=== PATIENT | female | born 1990 | race Caucasian/White ===

== ENCOUNTER 2019-12-31 12:17 | Outpatient (CLI) | payer OTHER, SELFPAY ==
[2019-12-31 12:40] LABS: Basophils Absolute Auto 0.1 K/mm3 (0.0-0.1); Basophils Percent Auto 1.1 % (0.2-1.2); Eosinophils Absolute Auto 0.1 K/mm3 (0-0.3); Hematocrit 38.3 % (37.0-47.0); Hemoglobin 12.3 g/dL (12.0-15.0); Immature Granulocyte Absolute 0.02 K/mm3 (0.00-0.031); Immature Granulocyte Percent A 0.3 % (0-0.5); Lymphocytes Absolute Auto 1.99 K/mm3 (0.9-3.2); Lymphocytes Percent Auto 31.7 % (18.3-44.2); Mean Corpuscular HGB Conc 32.1 g/dl (32-36); Mean Corpuscular Hemoglobin 28.3 pg (26-34); Mean Corpuscular Volume 88.2 fl (80-100); Mean Platelet Volume 8.2 fl (7.4-10.4); Monocytes Absolute Auto 0.4 K/mm3 (0.1-0.6); Monocytes Percent Auto 5.6 % (2.6-8.5); Neutrophils Absolute Auto 3.8 K/mm3 (1.3-6.7); Neutrophils Percent Auto 60.3 % (45.5-73.1); Platelet Count Result 312 k/mm3 (150-375); Red Blood Count 4.34 M/mm3 (4.2-5.4); Red Cell Distribution Width 12.8 % (11.5-14.5); White Blood Count 6.3 K/mm3 (4.5-10.0)
[2019-12-31 12:51] LABS: Alanine Aminotransferase 18 U/L (4-35); Albumin Level 4.6 g/dL (3.5-5.1); Alkaline Phosphatase 55 U/L (38-126); Aspartate Amino Transferase 29 U/L (14-36); Bilirubin,Total 0.6 mg/dL (0.2-1.3); Blood Urea Nitrogen 14 mg/dL (7-17); Calcium 9.4 mg/dL (8.4-10.2); Carbon Dioxide 26 mmol/L (22-30); Chloride 102 mmol/L (98-107); Cholesterol 191 mg/dL (0-200); Estimated Glomerular Filt Rate > 60; Glucose 84 mg/dL (65-105); HDL Direct 91 mg/dL; Potassium 4.2 mmol/L (3.4-5.0); Sodium 139 mmol/L (137-145); Triglycerides 61 mg/dL (<150)
[2019-12-31 13:06] LABS: LDL Cholesterol Direct 98 mg/dL
[2019-12-31 13:23] LABS: Free T4 Free Thyroxine 0.81 ng/mL (0.78-2.19)
[2019-12-31 13:25] LABS: Thyroid Stimulating Hormone 0.503 uIU/mL (0.465-4.680)
== END 2019-12-31 12:18 | disposition home or self-care (01) ==
PROVIDERS: PCP Family Medicine; Visit Provider Family Medicine
DX: Z13.1 Encounter for screening for diabetes mellitus (principal); Z13.0 Encounter for screening for diseases of the blood and blood-forming organs and certain disorders involving the immune mechanism; Z13.220 Encounter for screening for lipoid disorders; Z13.29 Encounter for screening for other suspected endocrine disorder
CPT/HCPCS: 36415; 80053; 80061; 84439; 84443; 85025

== ENCOUNTER 2020-07-08 16:24 | Outpatient (CLI) | payer OTHER, SELFPAY ==
[2020-07-08 17:44] LABS: Basophils Absolute Auto 0.1 K/mm3 (0.0-0.1); Basophils Percent Auto 0.5 % (0.2-1.2); Eosinophils Absolute Auto 0.1 K/mm3 (0-0.3); Hematocrit 35.9 % (37.0-47.0); Hemoglobin 12.3 g/dL (12.0-15.0); Immature Granulocyte Absolute 0.17 K/mm3 (0.00-0.031); Immature Granulocyte Percent A 1.6 % (0-0.5); Lymphocytes Absolute Auto 2.34 K/mm3 (0.9-3.2); Lymphocytes Percent Auto 22.2 % (18.3-44.2); Mean Corpuscular HGB Conc 34.3 g/dl (32-36); Mean Corpuscular Hemoglobin 29.6 pg (26-34); Mean Corpuscular Volume 86.3 fl (80-100); Mean Platelet Volume 8.3 fl (7.4-10.4); Monocytes Absolute Auto 0.9 K/mm3 (0.1-0.6); Monocytes Percent Auto 8.2 % (2.6-8.5); Neutrophils Percent Auto 66.5 % (45.5-73.1); Platelet Count Result 277 k/mm3 (150-375); Red Blood Count 4.16 M/mm3 (4.2-5.4); Red Cell Distribution Width 11.7 % (11.5-14.5); White Blood Count 10.6 K/mm3 (4.5-10.0)
[2020-07-08 18:33] LABS: HIV 1/2 Ab P24 Ag Result Negative (Negative)
[2020-07-08 18:36] LABS: Vitamin D 25 Hydroxy 59.5 ng/mL
[2020-07-08 19:05] LABS: Hepatitis B Surface Anti Res Negative
[2020-07-09 09:36] LABS: Rapid Plasma Reagin Non-Reactive (NonReactive)
== END 2020-07-08 16:25 | disposition home or self-care (01) ==
PROVIDERS: PCP Family Medicine; Visit Provider Obstetrics & Gynecology
DX: Z34.80 Encounter for supervision of other normal pregnancy, unspecified trimester (principal); Z3A.00 Weeks of gestation of pregnancy not specified
CPT/HCPCS: 36415; 82306; 85025; 86592; 86703; 86706; 86762; 86850; 86900; 86901; G0432

== ENCOUNTER 2021-02-11 05:30 | Inpatient (IN) | payer OTHER, SELFPAY ==
[2021-02-11] VITALS (171 sets, daily range): BP systolic 110–146; BP diastolic 59–108; PULSE 57–124; TEMP 36.4–37.1; O2SAT 95–100
--- NOTE | 2021-02-11 05:49 | LDADM ---
This patient, Mary Lou Huerta, was admitted to Labor/Delivery/Recovery 104 on 02/11/21 at 05:30. Plans for labor, pain management and were discussed with patient. Patient/family oriented to hospital policies and general routines including ID bracelet, bed and alarms, visiting hours, pain management, procedures, bathroom and other care routines, personal items, smoking policy, room service/diet and guest tray routines, security routines, and visiting hours. Patient/Family are encouraged to report perceived risks to care and to ask questions if they do not understand what they are told or what they should do. See OBIX for further documentation.
[2021-02-11 06:12] LABS: Basophils Absolute Auto 0.1 K/mm3 (0.0-0.1); Basophils Percent Auto 0.5 % (0.2-1.2); Eosinophils Absolute Auto 0.1 K/mm3 (0-0.3); Eosinophils Percent Auto 1.2 % (0-4.4); Hematocrit 35.2 % (37.0-47.0); Hemoglobin 11.7 g/dL (12.0-15.0); Immature Granulocyte Absolute 0.07 K/mm3 (0.00-0.031); Immature Granulocyte Percent A 0.7 % (0-0.5); Lymphocytes Absolute Auto 2.26 K/mm3 (0.9-3.2); Lymphocytes Percent Auto 22.2 % (18.3-44.2); Mean Corpuscular HGB Conc 33.2 g/dl (32-36); Mean Corpuscular Hemoglobin 29.1 pg (26-34); Mean Corpuscular Volume 87.6 fl (80-100); Mean Platelet Volume 8.8 fl (7.4-10.4); Monocytes Percent Auto 9.7 % (2.6-8.5); Neutrophils Absolute Auto 6.7 K/mm3 (1.3-6.7); Neutrophils Percent Auto 65.7 % (45.5-73.1); Platelet Count Result 209 k/mm3 (150-375); Red Blood Count 4.02 M/mm3 (4.2-5.4); Red Cell Distribution Width 13.2 % (11.5-14.5); White Blood Count 10.2 K/mm3 (4.5-10.0)
[2021-02-11] MEDS: LACTATED RINGERS 1,000 ML 125 ML IV CONT ×3 (06:18→13:21)
[2021-02-11] MEDS: OXYTOCIN 30 UNITS/NS 500 ML 30 UNITS/500 ML BAG 6 UNITS IV CONT (06:19)
--- NOTE | 2021-02-11 07:22 | P.PNAN_ITS ---
Anes - Eval Pre Procedure Procedure: labor epidural Date/Time: 02/11/21 07:22 Preop Diagnosis: labor pain Pre Op Diagnosis: IOL Patient Data Age: 30 Gender: F Height: Weight: Last Vital Signs Temp 37.1 C 02/11/21 06:13 Pulse 92 02/11/21 07:15 BP 140/99 H 02/11/21 07:15 Allergies Allergy/AdvReac Type Severity Reaction Status Date / Time No Known Drug Allergies Allergy Unknown Verified 10/14/18 01:46 Home Medications Medication Instructions Recorded Confirmed Type PNV cmb#95-ferrous fumarate-FA 1 tablet PO DAILY 01/20/21 01/20/21 History [] calcium carbonate [Tums] 200 mg PO TID 01/20/21 01/20/21 History docusate sodium [Colace] 50 mg PO DAILY 01/20/21 01/20/21 History famotidine [Pepcid] 20 mg PO DAILY 01/20/21 01/20/21 History Laboratory Tests 02/11/21 02/11/21 02/11/21 05:58 05:58 05:58 WBC 10.2 K/mm3 H K/mm3 (4.5-10.0) RBC 4.02 M/mm3 L M/mm3 (4.2-5.4) Hgb 11.7 g/dL L g/dL (12.0-15.0) Hct 35.2 % L % (37.0-47.0) MCV 87.6 fl fl (80-100) MCH 29.1 pg pg (26-34) MCHC 33.2 g/dl g/dl (32-36) RDW 13.2 % % (11.5-14.5) Plt Count 209 k/mm3 k/mm3 (150-375) MPV 8.8 fl fl (7.4-10.4) Immature Gran % (Auto) 0.7 % H % (0-0.5) Neut % (Auto) 65.7 % % (45.5-73.1) Lymph % (Auto) 22.2 % % (18.3-44.2) Harper % (Auto) 9.7 % H % (2.6-8.5) Eos % (Auto) 1.2 % % (0-4.4) Baso % (Auto) 0.5 % % (0.2-1.2) Lymph # (Auto) 2.26 K/mm3 K/mm3 (0.9-3.2) Harper # (Auto) 1.0 K/mm3 H K/mm3 (0.1-0.6) Eos # (Auto) 0.1 K/mm3 K/mm3 (0-0.3) Baso # (Auto) 0.1 K/mm3 K/mm3 (0.0-0.1) Abs Immat Gran (auto) 0.07 K/mm3 H K/mm3 (0.00-0.031) Absolute Neuts (auto) 6.7 K/mm3 K/mm3 (1.3-6.7) Absolute Nucleated RBC 0.0 K/mm3 K/mm3 (0.0-0.012) Nucleated RBC % 0.0 % % (0.0-0.2) RPR Pending Blood Type O Positive Antibody Screen Negative Patient hx anesthesia problems: none Family hx anesthesia problems: none [facility] Family History Family History (Updated 01/20/21 @ 12:35 by Yuni Kitchen RN) Other No pertinent family history Social History Social History Smoking status: Never smoker Second hand tobacco smoke exposure: No Substance use: never Gender identity (if verbalized by the patient): Female Spiritual care concerns: No Exam Day of Procedure 02/11/21 07:22
--- NOTE | 2021-02-11 07:39 | PM.IMHP ---
H&P: HPI History of Present Illness Date/Time: 02/11/21 07:39 30 yo at 40w3d who presents for IOL for post dates. Pt denies any regular contractions, vaginal bleeding, or leakage of fluid. Her has been uncomplicated thus far. Pt has had some elevated BP but denies any Preeclampsia symptoms. Chief Complaint: single intrauterine at term Review of Systems Cardiovascular: Cardiovascular: Denies chest pain, Denies leg edema, Denies palpitations, Denies dyspnea and Denies dyspnea on exertion Respiratory: Respiratory: Denies cough, Denies dyspnea and Denies dyspnea on exertion Gastrointestinal: Gastrointestinal: Denies abdominal pain, Denies constipation, Denies diarrhea, Denies nausea and Denies vomiting Genitourinary: Genitourinary: Denies hematuria, Denies urinary frequency, Denies dysuria, Denies pelvic pain, Denies urinary incontinence and Denies vaginal discharge Neurologic: Reports system reviewed and no additional complaints, except as documented Psychiatric: Psychiatric: Reports no additional psychiatric complaints Endocrine: Endocrine: Denies palpitations [facility] Family History Family History (Updated 01/20/21 @ 12:35 by Yuni Kitchen RN) Other No pertinent family history Social History Social History Smoking status: Never smoker Second hand tobacco smoke exposure: No Substance use: never Gender identity (if verbalized by the patient): Female Spiritual care concerns: No Meds Home Medications and Allergies Home Medications Medication Instructions Recorded Confirmed Type PNV cmb#95-ferrous fumarate-FA 1 tablet PO DAILY 01/20/21 01/20/21 History [] calcium carbonate [Tums] 200 mg PO TID 01/20/21 01/20/21 History docusate sodium [Colace] 50 mg PO DAILY 01/20/21 01/20/21 History famotidine [Pepcid] 20 mg PO DAILY 01/20/21 01/20/21 History Allergies Allergy/AdvReac Type Severity Reaction Status Date / Time No Known Drug Allergies Allergy Unknown Verified 10/14/18 01:46 Vital Signs Vital Signs - 24 hr 02/11/21 06:02 02/11/21 06:13 02/11/21 06:15 Temperature 37.1 C Pulse Rate 103 H 92 Blood Pressure 135/97 H 143/93 H 02/11/21 06:30 02/11/21 06:45 02/11/21 07:00 Temperature Pulse Rate 85 76 85 Blood Pressure 135/93 H 139/91 H 137/94 H 02/11/21 07:15 02/11/21 07:30 Temperature Pulse Rate 92 83 Blood Pressure 140/99 H 137/85 Exam Const: General: no acute distress Eyes: EOM: EOMs intact bilaterally Neck: Neck: supple Thyroid: thyroid normal Chest: Breast/axilla inspection: normal inspection of the breasts Breast/axilla palpation: normal palpation of the breasts, normal palpation of the axillae and no axillary lymphadenopathy Resp: Effort & Inspection: normal respiratory effort Auscultation: clear to auscultation bilaterally Cardio: Rate: regular rate Rhythm: regular rhythm GI: Inspection: non-distended GI Palp: Yes Soft to palpation, No Tenderness to palpation present (GI) and No Guarding due to palpation present (GI) Auscultation: normal bowel sounds : General: No bladder normal to palpation External Female Exam: normal external appearance Bimanual exam- vagina & uterus: No Cervical tenderness present and other (Gravid) OB/external & speculum: No vaginal bleeding Manual OB Exam: dilated 2 cm, effaced 50% and station -2 Skin: General skin exam: normal color and no rashes or lesions noted Neuro: Cognition (Neuro): normal cognition Speech: normal speech Extrem: General: normal to inspection and no edema Psych: Mental Status: mental status grossly normal Affect: normal affect H&P: Results Labs Labs: Short CBC 02/11/21 Range/Units 05:58 WBC 10.2 H (4.5-10.0) K/mm3 Hgb 11.7 L (12.0-15.0) g/dL Hct 35.2 L (37.0-47.0) % Plt Count 209 (150-375) k/mm3 Assessment and Plan Assessment and plan (1) Supervision of high risk , unspecified, third trimester: Code(s):
--- NOTE | 2021-02-11 11:17 | PM.OBPNLAB ---
Pain Control Date/time seen: 02/11/21 10:30 Pain control: tolerating well Pelvic Exam Dilation (cm): 4 Effacement (%): 60 station: -2 Amniotic membrane status: Intact Comments: AROM for clear fluid Contractions Monitor mode: External Contraction pattern: Regular Status status: Category l Assessment and Plan Assessment: induction ongoing Plan: continuous present management
[2021-02-11 11:58] LABS: Rapid Plasma Reagin Non-Reactive (NonReactive)
[2021-02-11] MEDS: CALCIUM CARBONATE (TUMS) 500 MG (200 MG ELEMENTAL) PO (14:38)
[2021-02-11] MEDS: ONDANSETRON INJ 4 MG/2 ML VIAL IV PUSH (17:07)
[2021-02-11] MEDS: FAMOTIDINE 20 MG/2 ML VIAL IV PUSH (17:10)
--- NOTE | 2021-02-11 20:33 | PM.OBPRVD ---
OB - Delivery Note Procedure Procedure: Patient pushed for a spontaneous vaginal delivery. A nuchal cord x1 was noted. The fetus was delivered through the nuchal. The fetus was delivered atraumatically and placed on the maternal abdomen. The cord was clamped and cut after 1 minute of life. The cord was double clamped and cut and a segment of cord was collected for cord gases. Cord blood was collected for blood type and Coomb's testing. The placenta delivered spontaneously and was noted to be intact. The perineum was inspected and there were no lacerations noted. There was a small right labial laceration noted to be bleeding. A single figure of 8 suture of 3-0 vicryl was placed. The area was noted to be hemostatic. The uterus was firm and good hemostasis was noted. The patient and fetus were stable in the delivery room. Intrapartal events: None Induction method: per pitocin protocol Delivery augmentation: rupture of membranes Delivery monitor: external FHT Route of delivery: Episiotomy description: None Laceration Description: Labial (right) Delivery repair: vicryl Specimen: No Quantitative Blood Loss (ml): 200 Anesthesia type: Epidural Disposition: floor () Complications: No immediate complications [place] Baby Date of : 02/11/21 Time of : 20:20 Weeks of gestation at delivery: 40 Infant gender: Male Weight (pounds): 8 Weight (ounces): 0 presentation: vertex position: Right Occiput Anterior Placenta delivery description: Spontaneous cord vessel description: 3 Vessels and Nuchal Cord score one minute: 9 score five minutes: 9
[2021-02-11] MEDS: IBUPROFEN 600 MG TABLET PO (21:13)
[2021-02-11] MEDS: BENZOCAINE 20% AER SPR (*SP) 56 GM CAN 1 SPRAY TOPICAL (23:18)
[2021-02-11] MEDS: WITCH HAZEL 40 PADS 1 PAD TOPICAL (23:19)
[2021-02-12 00:20] VITALS: BP 125/83; PULSE 74; RESP 14; TEMP 36.3; O2SAT 98
[2021-02-12] MEDS: ACETAMINOPHEN 325 MG TABLET 650 MG PO ×3 (03:47→20:10)
[2021-02-12 04:00] VITALS: BP 111/76; PULSE 72; RESP 12; TEMP 36.4; O2SAT 98
[2021-02-12 04:06] LABS: Hematocrit 33.4 % (37.0-47.0); Hemoglobin 11.1 g/dL (12.0-15.0)
[2021-02-12 07:10] VITALS: BP 128/86; PULSE 76; RESP 18; TEMP 36.7; O2SAT 99
--- NOTE | 2021-02-12 07:45 | PM.OBPNVD ---
OB - PN: Subj Subjective Date/time seen: 02/12/21 07:45 Patient comments: no complaints, pain well controlled and tolerating diet [place] feeding status: exclusively breast feeding Narrative: patient doing well this AM. No complaints. Pain is well controlled. She reports minimal bleeding. She is ambulating and voiding without difficulty. She is tolerating PO. She denies N/V, fever, chills. OB - PN: Obj Data Labs CBC & Chem 7: 02/12/21 03:57 Labs: Laboratory Results - last 24 hr 02/11/21 02/12/21 05:58 03:57 Hgb 11.1 L Hct 33.4 L RPR Non-reactive OB - PN A/P Plan day: 1 Plan: routine care Comments: patient doing well H/H plan for circumcision today. Risks, benefits, and alternatives discussed. Verbal consent obtained continue routine care Time Spent With Patient Time: Total time spent is greater than 50% in coordination of care (as documented) at patient's floor/unit and/or counseling patient: Time with patient: less than 15 minutes Review of Systems Review of Systems: All systems reviewed & are unremarkable except as noted in HPI and below Exam Const: General: comfortable and no acute distress Resp: Effort & Inspection: normal respiratory effort Cardio: Rate: regular rate GI: GI Palp: Yes Soft to palpation and No Tenderness to palpation present (GI) Auscultation: normal bowel sounds Other: fundus firm and below umbilicus. Psych: Affect: normal affect
--- NOTE | 2021-02-12 07:56 | WPDANLDPN2 ---
Anes-Prog Note L&D Date/Time: 02/12/21 07:56 Comfortable throughout: labor and delivery Neuraxial method: epidural Epidural/Spinal procedure site: clean & non-tender Neuro status: Neuro function grossly intact. Cardiovascular status: normal Respiratory status: normal Airway patency: baseline Mental status: baseline Post-Op hydration status: normal Vital Signs: Last Vital Signs Temp 36.4 C L 02/12/21 04:00 Pulse 72 02/12/21 04:00 Resp 12 02/12/21 04:00 BP 111/76 02/12/21 04:00 Pulse Ox 98 02/12/21 04:00 Pain score (VAS): 0 I/O: Intake & Output 02/11/21 02/11/21 02/12/21 15:59 23:59 07:59 Intake Total 2000 1000 Output Total 300 Balance 2000 700 Post-procedural complaints: none Patient feedback: Patient satisfied with anesthetic care.
--- NOTE | 2021-02-12 09:05 | PC.NURSE ---
Mother called out for assist with feeding. Consulted with patient, mother reports has fed well since . Mother has nipple discomfort with latch and at times during the feeding. Reviewed nipple care of lanolin, warm compresses several times per day and gel pads as needed. Reviewed feeding cues, frequencies, duration of feedings, feeding elimination flow sheet, and signs of adequate intake. Demonstrated stimulation techniques to wake infant for feeding. Assisted with to breast. Reviewed positioning/alignment in cross cradle, holding breast in U hold and guided asymmetrical latch on. Infant was able to latch within a few attempts. Infant nursed eagerly, with steady draws and frequent swallowing noted. Reviewed signs of a correct latch, effective nursing and suck swallow ratio. Infant was able to maintain latch. Mother reported tenderness at times, infant had slipped to shallow latch. Demonstrated how to adjust latch more deeply while feeding. Mother quickly reports she can feel infant is latched more deeply and has minimal tenderness. Suggested to stimulate while feeding to keep infant awake and nursing effectively for increased stimulation and increased intake. Instructed mother to call out for RN assistance if she is unable to latch for feeding or she has discomfort with nursing.
[2021-02-12 10:00] VITALS: PULSE 76; RESP 18; O2SAT 99
--- NOTE | 2021-02-12 10:30 | PC.NURSE ---
Consult with pt., to discuss supplementation due to jaundice. Parents are willing to supplement as ICP has suggested. Demonstrated pace feeding. Suggested mother initiate pumping 5-10 minutes after feedings, while FOB supplements. Mother would like to use her pump from home and will call out when ready to pump.
[2021-02-12] MEDS: MULTIVIT/MIN/PREN/FOL AC/IRON TABLET 1 TAB PO (11:25)
[2021-02-12 12:30] VITALS: BP 130/91; PULSE 83; RESP 18; TEMP 36.8; O2SAT 100
--- NOTE | 2021-02-12 12:40 | PC.NURSE ---
Mother called out for assist with feeding. . Demonstrated stimulation techniques to wake infant for feeding. Assisted with infant to breast. Reviewed positioning/alignment in football, holding breast in C hold and guided asymmetrical latch on. was able to latch within a few attempts. nursed eagerly, with steady draws and frequent swallowing noted. Reviewed signs of a correct latch, effective nursing and suck swallow ratio. was able to maintain latch. Mother reported tenderness at times, infant had slipped to shallow latch. Demonstrated how to adjust latch more deeply while feeding. Advised mother to give gentle resistance when infant attempts to pull back for shallow latch. Mother works independently to correct shallow latch. Suggested to stimulate while feeding to keep awake and nursing effectively for increased stimulation and increased intake. Instructed mother to call out for RN assistance if she is unable to latch infant for feeding or she has discomfort with nursing.
--- NOTE | 2021-02-12 15:00 | PC.NURSE ---
Mother wishes instruction on her Spectra pump. Instructions given on breast pump care and usage, pumping schedule, nipple care, and collection and storage of breast milk. Encouraged [id number], breast massage and manual expression to stimulate supply. Assessed patient for correct flange size, placement and draw. Patient verbalizes and demonstrates understanding of instructions.
[2021-02-12] MEDS: IBUPROFEN 600 MG TABLET PO (15:32)
[2021-02-12 19:50] VITALS: BP 120/80; PULSE 80; RESP 18; TEMP 36.8
[2021-02-13 07:15] VITALS: BP 130/95; PULSE 77; RESP 16; TEMP 36.5; O2SAT 100
--- NOTE | 2021-02-13 07:16 | PM.DS ---
DS: Admitting Diagnosis Admitting Diagnosis Admitting Diagnosis: term iup DS: Summary Hospital Course Hospital Course: Patient was admitted active labor. She underwent spontaneous vaginal delivery of a male . Her hospital course was unremarkable. She remained afebrile. She was up, watching the difficulty, ambulating, and generally without complaints. There were no apparent complications to her stay Time Spent with Patient Time attestation: Total time spent providing and/or coordinating discharge services: Exam Const: General: no acute distress Eyes: General: appearance normal, both eyes and all related structures Neck: Neck: supple and no JVD Thyroid: thyroid normal Resp: Effort & Inspection: normal respiratory effort Auscultation: clear to auscultation bilaterally Cardio: Rate: regular rate Rhythm: regular rhythm GI: Inspection: non-distended GI Palp: Yes Soft to palpation, No Tenderness to palpation present (GI) and No Guarding due to palpation present (GI) Auscultation: normal bowel sounds : General: Yes bladder normal to palpation External Female Exam: normal external appearance Speculum Exam - Vagina: normal vaginal discharge and No vaginal bleeding Speculum Exam - Cervix: nontender Bimanual exam- vagina & uterus: bladder normal to palpation and No Cervical tenderness present OB/external & speculum: No vaginal bleeding Skin: General skin exam: no rashes or lesions noted Extrem: General: normal to inspection and no edema Psych: Mental Status: mental status grossly normal Affect: normal affect Discharge Plan Discharge Attending physician on discharge: Jaquan Murdock Discharging Clinician: Jaquan Murdock Patient Disposition: Home, Self-Care Activity: may shower, no straining and pelvic rest Diet: heart healthy Wound Care Instructions: follow printed instructions Patient Instructions: Antibiotic Form Stand Alone Forms: General Discharge Information Follow-up/Referrals: Jaquan Murdock MD [Physician] - Discharge Medications: Continued PNV cmb#95-ferrous fumarate-FA [] 28 mg iron- 800 mcg Tablet 1 tablet PO DAILY RF: 0 Colace 50 mg Capsule 50 mg PO DAILY RF: 0 famotidine [Pepcid] 20 mg Tablet 20 mg PO DAILY RF: 0 calcium carbonate [Tums] 200 mg calcium (500 mg) Tablet,Chewable 200 mg PO TID RF: 0 Date of admission: 02/11/21 05:30 Primary Care Provider: EricAmeena Admitting Provider: Jaquan Murdock Attending physician on admission: Jaquan Murdock Condition: Stable
--- NOTE | 2021-02-13 07:18 | PM.OBPNVD ---
OB - PN: Subj Subjective Date/time seen: 02/13/21 07:19 Patient comments: no complaints and pain well controlled baby status: doing well and nursing well OB - PN: Obj Data Labs CBC & Chem 7: 02/12/21 03:57 OB - PN A/P Plan day: 2 Plan: routine care, discharge home and follow up 6 weeks Time Spent With Patient Time: Total time spent is greater than 50% in coordination of care (as documented) at patient's floor/unit and/or counseling patient: Time with patient: less than 15 minutes Review of Systems Review of Systems: All systems reviewed & are unremarkable except as noted in HPI and below Exam Const: General: no acute distress Eyes: General: appearance normal, both eyes and all related structures Neck: Neck: supple and no JVD Thyroid: thyroid normal Resp: Effort & Inspection: normal respiratory effort Auscultation: clear to auscultation bilaterally Cardio: Rate: regular rate Rhythm: regular rhythm GI: Inspection: non-distended GI Palp: Yes Soft to palpation, No Tenderness to palpation present (GI) and No Guarding due to palpation present (GI) Auscultation: normal bowel sounds : General: Yes bladder normal to palpation External Female Exam: normal external appearance Speculum Exam - Vagina: normal vaginal discharge and No vaginal bleeding Speculum Exam - Cervix: nontender Bimanual exam- vagina & uterus: bladder normal to palpation and No Cervical tenderness present OB/external & speculum: No vaginal bleeding Skin: General skin exam: no rashes or lesions noted Extrem: General: normal to inspection and no edema Psych: Mental Status: mental status grossly normal Affect: normal affect
[2021-02-13] MEDS: IBUPROFEN 600 MG TABLET PO (07:34)
[2021-02-13] MEDS: MULTIVIT/MIN/PREN/FOL AC/IRON TABLET 1 TAB PO (07:35)
[2021-02-13] MEDS: ACETAMINOPHEN 325 MG TABLET 650 MG PO (13:05)
--- NOTE | 2021-02-13 15:23 | PC.NURSE ---
Patient viewed the discharge video Mother & Baby Care, The First Two Weeks . Patient was given the opportunity and encouraged to ask questions. Patient verbalized understanding of information shared and has been given the mother/baby guide for home reference.
[2021-02-15 07:53] VITALS: BP 128/89; PULSE 73; RESP 16; TEMP 36.6; O2SAT 97
== END 2021-02-13 16:36 | disposition home or self-care (01) | DRG 807 ==
LOC: ANHLDR 05:33 → ANHOB2 02-12 01:22
PROVIDERS: Student in an Organized Health Care Education/Training Program; Admitting Provider Obstetrics & Gynecology; PCP Family Medicine; Visit Provider Obstetrics & Gynecology
DX: O69.81X0 Labor and delivery complicated by cord around neck, without compression, not applicable or unspecified (principal); Z37.0 Single live birth; O70.0 First degree perineal laceration during delivery; Z3A.40 40 weeks gestation of pregnancy
CPT/HCPCS: 36415; 85014; 85018; 85025; 86592; 86850; 86900; 86901; A9270; J2405; J2590; J2795; J7120

== ENCOUNTER 2021-02-24 11:59 | Outpatient (CLI) | payer OTHER, SELFPAY ==
--- NOTE | 2021-02-25 14:52 | PC.NURSE ---
IN 1000 OUT 1040 HISTORY: Pt. delivered at [facility] at 39 weeks. had no complications after delivery. Mother had no complications after delivery. Infant is now 13 days old. Infant appears to be well cared for. Infant has been seen by ICP as scheduled. Infant last seen by ICP at 1 week. Mother reports: will eagerly latch, mother believes has a correct latch by all measures. She has pain with entire feeding and a burning sensation when not feeding and pain if anything touches the nipple. Mother pumped and bottle fed the last 24 hours due to pain. Mother reports pain with pumping, less than when is at breast Mother wishes: Resolve pain issue and improve latch as needed. Currently at 6 wets per day and 2-3 yellow seedy stools per day. weight: 8#0 Discharge weight: 7#12 Last Weight:7#13 at apt OBSERVATION: Both nipples and small area beyond nipple onto areola are reddened, dry and slightly scaly as in possible thrush. Infant's mouth does not have any white patches noted. Infant does not appear to have a tight frenulum, lips or high palate. Observed mother using cross cradle holding breast and guided asymmetrical latch on. Infant was opening wide and eagerly latched with first attempt. Infant nursed with long rhythmical draws and freq swallowing was noted. Mother reports pain of 6 on 1-10 scale. Demonstrated how to adjust latch more deeply while feeding. vicky in more areola, mother did not report she could feel any difference in discomfort before adjustment, continuing to report a pain of 6. Had mother break latch, nipple was elongated and rounded no signs of a misshapen nipple. Discussed the possibility of thrush, called for RX to be sent in to Pharmacy. Advised mother to call ICP for possible RX for infant. Mother plans to continue to pump for a 24 hours. Discussed cleaning of all pacifiers, nipples, pumping flanges,changing bra pads freq and hand washing. PLAN: Mother will call ICP and follow above instructions for care. Mother will call with further questions or concerns. Follow up phone call scheduled for 02-25-2021 02/25/2021 called for [facility] to be called in. patient called, message left with information.
== END 2021-02-24 12:00 | disposition home or self-care (01) ==
LOC: ANHOBOP 12:04
PROVIDERS: PCP Family Medicine; Visit Provider Obstetrics & Gynecology
DX: N64.59 Other signs and symptoms in breast (principal)
CPT/HCPCS: 99212; G0463

== ENCOUNTER 2022-10-18 14:36 | Outpatient (CLI) | payer OTHER, SELFPAY ==
[2022-10-22 05:13] LABS: Progesterone 10.1 ng/mL (***)
== END 2022-10-18 14:37 | disposition home or self-care (01) ==
PROVIDERS: PCP Family Medicine; Visit Provider Obstetrics & Gynecology
DX: O20.0 Threatened abortion (principal)
CPT/HCPCS: 36415; 84144; 84702

== ENCOUNTER 2022-10-21 16:18 | Outpatient (CLI) | payer OTHER, SELFPAY | END 2022-10-21 16:19 | disposition home or self-care (01) | LOC: ANHLAB 16:19 | PROVIDERS: PCP Family Medicine; Visit Provider Obstetrics & Gynecology | DX: O26.859 Spotting complicating pregnancy, unspecified trimester (principal); Z3A.00 Weeks of gestation of pregnancy not specified | CPT/HCPCS: 36415; 84702 ==

== ENCOUNTER 2022-10-24 11:16 | Outpatient (CLI) | payer OTHER, SELFPAY ==
--- NOTE | ~2022-10-24 | US_ITS ---
EXAMINATION: US OB <=14 wk fetus w TV DATE: 10/24/2022 12:35 INDICATION: Spontaneous . Beta-hCG is 14,338 mIU/mL. TECHNIQUE: Real-time transabdominal and transvaginal pelvic ultrasound was performed. COMPARISON: None. FINDINGS: TRANSABDOMINAL ULTRASOUND: The uterus measures 11.7 x 4.3 x 7.2 cm. TRANSVAGINAL ULTRASOUND: The endometrial complex measures 13 mm in thickness. There is no visible ges tational sac. There is a 2.2 cm subserosal fibroid. The right ovary measures 3.0 x 1.6 x 1.7 cm. The left ovary measures 3.2 x 1.7 x 1.7 cm. There is physiologic free fluid in the pelvis. IMPRESSION: 1. Endometrial thickness of 13 mm without gestational sac. The differential diagnosis includes spont aneous with retained product of conception and ectopic . Reviewed, dictated and finalized at location A. TH INFORMATION TECH IMPRESSION: 1. Endometrial thickness of 13 mm without gestational sac. The differential di agnosis includes spontaneous with retained product of conception and e ctopic .
== END 2022-10-24 11:17 | disposition home or self-care (01) ==
PROVIDERS: PCP Family Medicine; Visit Provider Obstetrics & Gynecology
DX: O20.0 Threatened abortion (principal); Z3A.00 Weeks of gestation of pregnancy not specified
CPT/HCPCS: 76801; 76817

== ENCOUNTER 2022-12-15 10:48 | Outpatient (CLI) | payer OTHER, SELFPAY ==
[2022-12-15 12:06] LABS: Hemoglobin 12.9 g/dL (12.0-15.0); Mean Corpuscular HGB Conc 32.3 g/dl (32-36); Mean Corpuscular Hemoglobin 28.5 pg (26-34); Mean Corpuscular Volume 88.3 fl (80-100); Platelet Count Result 299 k/mm3 (150-375); Red Blood Count 4.53 M/mm3 (4.2-5.4); Red Cell Distribution Width 12.7 % (11.5-14.5); White Blood Count 7.3 K/mm3 (4.5-10.0)
[2022-12-15 12:16] LABS: Cholesterol 223 mg/dL (0-200); HDL Direct 84 mg/dL; Triglycerides 77 mg/dL (<150)
[2022-12-15 12:17] LABS: Alanine Aminotransferase 18 U/L (6-35); Albumin Level 4.8 g/dL (3.5-5.1); Alkaline Phosphatase 83 U/L (38-126); Anion Gap 6 mmol/L (8-16); Aspartate Amino Transferase 26 U/L (14-36); Blood Urea Nitrogen 13 mg/dL (7-17); Calcium 9.6 mg/dL (8.4-10.2); Carbon Dioxide 26 mmol/L (22-30); Chloride 101 mmol/L (98-107); Estimated Glomerular Filt Rate > 60; Glucose 80 mg/dL (65-110); Potassium 3.9 mmol/L (3.4-5.0); Sodium 133 mmol/L (137-145)
[2022-12-15 12:26] LABS: LDL Cholesterol Direct 93 mg/dL
== END 2022-12-15 10:49 | disposition home or self-care (01) ==
LOC: ANHLAB 10:50
PROVIDERS: PCP Family Medicine; Visit Provider Family Medicine
DX: Z13.0 Encounter for screening for diseases of the blood and blood-forming organs and certain disorders involving the immune mechanism (principal); Z13.220 Encounter for screening for lipoid disorders; Z13.1 Encounter for screening for diabetes mellitus
CPT/HCPCS: 36415; 80053; 80061; 85027

== ENCOUNTER 2023-03-20 14:37 | Outpatient (CLI) | payer OTHER, SELFPAY | END 2023-03-20 14:38 | disposition home or self-care (01) | LOC: ANHLAB 14:40 | PROVIDERS: PCP Family Medicine; Visit Provider Obstetrics & Gynecology | DX: N96 Recurrent pregnancy loss (principal) | CPT/HCPCS: 36415; 84702 ==

== ENCOUNTER 2023-04-12 14:10 | Outpatient (CLI) | payer OTHER, SELFPAY ==
[2023-04-12 15:01] LABS: Basophils Absolute Auto 0.1 K/mm3 (0.0-0.1); Basophils Percent Auto 0.6 % (0.2-1.2); Eosinophils Absolute Auto 0.1 K/mm3 (0-0.3); Eosinophils Percent Auto 0.6 % (0-4.4); Hematocrit 36.4 % (37.0-47.0); Hemoglobin 12.1 g/dL (12.0-15.0); Immature Granulocyte Absolute 0.03 K/mm3 (0.00-0.031); Immature Granulocyte Percent A 0.3 % (0-0.5); Lymphocytes Absolute Auto 1.74 K/mm3 (0.9-3.2); Lymphocytes Percent Auto 17.8 % (18.3-44.2); Mean Corpuscular HGB Conc 33.2 g/dl (32-36); Mean Corpuscular Hemoglobin 27.9 pg (26-34); Mean Corpuscular Volume 83.9 fl (80-100); Mean Platelet Volume 8.3 fl (7.4-10.4); Monocytes Absolute Auto 0.6 K/mm3 (0.1-0.6); Monocytes Percent Auto 5.6 % (2.6-8.5); Neutrophils Absolute Auto 7.3 K/mm3 (1.3-6.7); Neutrophils Percent Auto 75.1 % (45.5-73.1); Platelet Count Result 328 k/mm3 (150-375); Red Blood Count 4.34 M/mm3 (4.2-5.4); Red Cell Distribution Width 12.6 % (11.5-14.5); White Blood Count 9.8 K/mm3 (4.5-10.0)
[2023-04-12 15:53] LABS: Vitamin D 25 Hydroxy 38.7 ng/mL
[2023-04-12 15:56] LABS: Rapid Plasma Reagin Non-Reactive (NonReactive)
[2023-04-12 16:01] LABS: HIV 1/2 Ab P24 Ag Result Negative (Negative)
[2023-04-12 16:11] LABS: Hepatitis B Surface Antigen Negative (Negative)
[2023-04-12 16:13] LABS: Hepatitis B Surface Antigen 0.05 S/C; Rubella IgG Antibody > 110.0 IU/ML
== END 2023-04-12 14:11 | disposition home or self-care (01) ==
LOC: ANHLAB 14:12
PROVIDERS: PCP Family Medicine; Visit Provider Obstetrics & Gynecology
DX: Z34.80 Encounter for supervision of other normal pregnancy, unspecified trimester (principal); Z3A.00 Weeks of gestation of pregnancy not specified
CPT/HCPCS: 36415; 82306; 85025; 86592; 86703; 86762; 86850; 86900; 86901; 87086; 87340; G0432

== ENCOUNTER 2023-10-11 15:44 | Outpatient (CLI) | payer OTHER, SELFPAY ==
[2023-10-11] VITALS (22 sets, daily range): BP systolic 123–132; BP diastolic 84–97; PULSE 93–107; O2SAT 98–100
--- NOTE | 2023-10-11 15:55 | ECG_ITS ---
Measurements Intervals [place] Rate: 96 P: 25 WV: 183 QRS: 37 QRSD: 93 T: 17 QT: 329 QTc: 416 Interpretive Statements SINUS RHYTHM INCOMPLETE RIGHT BUNDLE BRANCH BLOCK BORDERLINE ECG NO PREVIOUS ECG AVAILABLE FOR COMPARISON Electronically Signed On 10-11-2023 16:27:47 INSPECTOR [employer]LECTR[employer]CH[employer] by Konstantin Kearns D.O.
[2023-10-11 16:28] LABS: Basophils Absolute Auto 0.1 K/mm3 (0.0-0.1); Basophils Percent Auto 0.4 % (0.2-1.2); Eosinophils Absolute Auto 0.1 K/mm3 (0-0.3); Eosinophils Percent Auto 1.2 % (0-4.4); Hemoglobin 10.6 g/dL (12.0-15.0); Immature Granulocyte Absolute 0.08 K/mm3 (0.00-0.031); Immature Granulocyte Percent A 0.7 % (0-0.5); Lymphocytes Absolute Auto 2.17 K/mm3 (0.9-3.2); Lymphocytes Percent Auto 17.8 % (18.3-44.2); Mean Corpuscular HGB Conc 32.1 g/dl (32-36); Mean Corpuscular Hemoglobin 28.2 pg (26-34); Mean Corpuscular Volume 87.8 fl (80-100); Mean Platelet Volume 8.7 fl (7.4-10.4); Monocytes Absolute Auto 1.1 K/mm3 (0.1-0.6); Monocytes Percent Auto 8.8 % (2.6-8.5); Neutrophils Absolute Auto 8.7 K/mm3 (1.3-6.7); Neutrophils Percent Auto 71.1 % (45.5-73.1); Platelet Count Result 235 k/mm3 (150-375); Red Blood Count 3.76 M/mm3 (4.2-5.4); White Blood Count 12.2 K/mm3 (4.5-10.0)
[2023-10-11 16:39] LABS: Alanine Aminotransferase 21 U/L (6-35); Albumin Level 3.9 g/dL (3.5-5.1); Alkaline Phosphatase 118 U/L (38-126); Anion Gap 8 mmol/L (8-16); Aspartate Amino Transferase 28 U/L (14-36); Bilirubin,Total 0.7 mg/dL (0.2-1.3); Blood Urea Nitrogen 10 mg/dL (7-17); Calcium 9.9 mg/dL (8.4-10.2); Carbon Dioxide 21 mmol/L (22-30); Chloride 104 mmol/L (98-107); Estimated Glomerular Filt Rate > 60; Glucose 93 mg/dL (65-110); Potassium 3.9 mmol/L (3.4-5.0); Sodium 133 mmol/L (137-145)
--- NOTE | 2023-10-11 17:20 | PC.NURSE ---
Dr. Radha Caballero returned page and informed of reactive NST, BP's, Pulse has been 90'100's, O2 sats 98-100%, read EKG preliminary report, given lab results except urine results not available- analyzer is down for maintenance and it will be at least 1- 1 1/2 hrs before results available. Order received to discharge pt to home with RX for Labetalol 100 mg PO BID- 60 tabs. Pt to check BP at work and report BP's to Dr. Radha Caballero on Monday.
[2023-10-11 17:26] LABS: Appearance Urine Clear (Clear); Bacteria Urine None Seen /hpf; Bilirubin Urine Negative (Negative); Blood Urine Negative (Negative); Color Urine Yellow (Yellow); Glucose Urine UA Negative (Negative); Ketones Urine Negative (Negative); Leukocyte Esterase Ur Trace LEU/UL (Negative); Nitrate Urine Negative (Negative); Non Pathogenic Casts 0-2; Protein Urine Negative (Negative); RBC Urine 0-2 /hpf (0-2); Specific Grav Ur 1.006 (1.001-1.035); Squamous Epithelial Cell Urine None seen /hpf (Few); Urobilinogen Urine 0.2 mg/dL (<2.0); WBC Urine 0-5 /hpf; pH Urine 7.5 (5.0-9.0)
[2023-10-11 17:37] LABS: Add Urine Microscopic? YES
[2023-10-11 18:20] LABS: Creatinine Urine 31.9 mg/dL; Total Protein Urine Random 15 mg/dL; Ur Ttl Prot Creatinine Ratio 0.47 mg/mg (0-0.20)
== END 2023-10-11 17:32 | disposition home or self-care (01) ==
LOC: ANHOBOP 15:47 → ANHOBPP 15:48 → ANHLDR 10-16 06:54
PROVIDERS: PCP Family Medicine; Visit Provider Obstetrics & Gynecology
DX: O13.9 Gestational [pregnancy-induced] hypertension without significant proteinuria, unspecified trimester (principal); Z3A.00 Weeks of gestation of pregnancy not specified; I45.10 Unspecified right bundle-branch block
CPT/HCPCS: 36415; 59025; 80053; 81001; 82570; 84156; 84550; 85025; 93005; 99199

== ENCOUNTER 2023-10-24 14:39 | Outpatient (CLI) | payer OTHER, SELFPAY ==
--- NOTE | 2023-10-24 14:50 | ECG_ITS ---
Measurements Intervals [place] Rate: 88 P: 54 [place]: 192 QRS: 46 QRSD: 93 T: 29 QT: 339 QTc: 410 Interpretive Statements SINUS RHYTHM POSSIBLE LEFT ATRIAL ENLARGEMENT [-0.1mV P WAVE IN V1/V2] POSSIBLE RIGHT VENTRICULAR CONDUCTION DELAY [RSR (QR) IN V1/V2] ABNORMAL ECG COMPARED TO ECG 10/11/2023 16:10:07 NO SIGNIFICANT CHANGES Electronically Signed On 10-25-2023 10:32:48 SIZE MARKER by Song Browning M.D.
== END 2023-10-24 14:40 | disposition home or self-care (01) ==
LOC: ANHCARD 14:43
PROVIDERS: PCP Family Medicine; Visit Provider Obstetrics & Gynecology
DX: R00.0 Tachycardia, unspecified (principal); R94.31 Abnormal electrocardiogram [ECG] [EKG]; R93.1 Abnormal findings on diagnostic imaging of heart and coronary circulation
CPT/HCPCS: 93005

== ENCOUNTER 2023-10-25 14:04 | Outpatient (CLI) | payer OTHER, SELFPAY ==
[2023-10-25 14:23] VITALS: BP 126/78; PULSE 86
[2023-10-25 14:30] VITALS: BP 124/77; PULSE 83
[2023-10-25 14:39] LABS: Basophils Absolute Auto 0.1 K/mm3 (0.0-0.1); Basophils Percent Auto 0.4 % (0.2-1.2); Eosinophils Absolute Auto 0.1 K/mm3 (0-0.3); Hematocrit 32.1 % (37.0-47.0); Hemoglobin 10.1 g/dL (12.0-15.0); Immature Granulocyte Absolute 0.06 K/mm3 (0.00-0.031); Immature Granulocyte Percent A 0.5 % (0-0.5); Lymphocytes Absolute Auto 1.96 K/mm3 (0.9-3.2); Lymphocytes Percent Auto 17.6 % (18.3-44.2); Mean Corpuscular HGB Conc 31.5 g/dl (32-36); Mean Corpuscular Hemoglobin 27.6 pg (26-34); Mean Corpuscular Volume 87.7 fl (80-100); Mean Platelet Volume 8.7 fl (7.4-10.4); Monocytes Absolute Auto 0.8 K/mm3 (0.1-0.6); Monocytes Percent Auto 7.1 % (2.6-8.5); Neutrophils Absolute Auto 8.2 K/mm3 (1.3-6.7); Neutrophils Percent Auto 73.4 % (45.5-73.1); Platelet Count Result 220 k/mm3 (150-375); Red Blood Count 3.66 M/mm3 (4.2-5.4); Red Cell Distribution Width 13.3 % (11.5-14.5); White Blood Count 11.1 K/mm3 (4.5-10.0)
[2023-10-25 14:45] VITALS: BP 123/81; PULSE 82
[2023-10-25 14:45] LABS: Appearance Urine Clear (Clear); Bilirubin Urine Negative (Negative); Blood Urine Negative (Negative); Color Urine Yellow (Yellow); Glucose Urine UA Negative (Negative); Ketones Urine Negative (Negative); Leukocyte Esterase Ur Negative LEU/UL (NEGATIVE); Nitrate Urine Negative (Negative); Protein Urine Negative (Negative); Specific Grav Ur 1.012 (1.001-1.035); Urobilinogen Urine 0.2 mg/dL (<2.0); pH Urine 7.5 (5.0-9.0)
[2023-10-25 14:49] LABS: Creatinine Urine 58.6 mg/dL; Total Protein Urine Random 11 mg/dL; Ur Ttl Prot Creatinine Ratio 0.19 mg/mg (0-0.20)
[2023-10-25 14:52] LABS: Add Urine Microscopic? NO
[2023-10-25 14:53] LABS: Alanine Aminotransferase 22 U/L (6-35); Albumin Level 3.8 g/dL (3.5-5.1); Alkaline Phosphatase 123 U/L (38-126); Anion Gap 4 mmol/L (8-16); Aspartate Amino Transferase 34 U/L (14-36); Bilirubin,Total 0.5 mg/dL (0.2-1.3); Blood Urea Nitrogen 10 mg/dL (7-17); Calcium 9.7 mg/dL (8.4-10.2); Carbon Dioxide 23 mmol/L (22-30); Chloride 106 mmol/L (98-107); Estimated Glomerular Filt Rate > 60; Glucose 77 mg/dL (65-110); Potassium 4.2 mmol/L (3.4-5.0); Sodium 133 mmol/L (137-145); Uric Acid 3.2 mg/dL (2.5-7.5)
[2023-10-25 15:00] VITALS: BP 131/82; PULSE 77
[2023-10-25 15:15] VITALS: BP 120/75; PULSE 80
[2023-10-25 15:30] VITALS: BP 126/78; PULSE 96
--- NOTE | 2023-10-26 07:46 | PM.OBTRLD ---
OB - Triage/Final Diagnosis Visit Information Date of evaluation: 10/25/23 Reason for evaluation: other (htn) Comments/Additional reasons for admission: I have assessed the risk for this patient, Mary Lou Huerta, and determined that she would benefit from observation care. Evaluation Laboratory results: Laboratory Tests 10/25/23 14:23 WBC 11.1 H RBC 3.66 L Hgb 10.1 L Hct 32.1 L MCV 87.7 MCH 27.6 MCHC 31.5 L RDW 13.3 Plt Count 220 MPV 8.7 Immature Gran % (Auto) 0.5 Neut % (Auto) 73.4 H Lymph % (Auto) 17.6 L [place] % (Auto) 7.1 Eos % (Auto) 1.0 Baso % (Auto) 0.4 Lymph # (Auto) 1.96 [place] # (Auto) 0.8 H Eos # (Auto) 0.1 Baso # (Auto) 0.1 Abs Immat Gran (auto) 0.06 H Absolute Neuts (auto) 8.2 H Absolute Nucleated RBC 0.0 Nucleated RBC % 0.0 Sodium 133 L Potassium 4.2 Chloride 106 Carbon Dioxide 23 Anion Gap 4 L BUN 10 Creatinine 0.50 L Estim Creat Clear Calc Not Reportable Estimated GFR > 60 Glucose 77 Uric Acid 3.2 Calcium 9.7 Total Bilirubin 0.5 AST 34 ALT 22 Alkaline Phosphatase 123 Total Protein 7.0 Albumin 3.8 Urine Color Yellow Urine Appearance Clear Urine pH 7.5 Ur Specific [place] 1.012 Urine Protein Negative Urine Glucose (UA) Negative Urine Ketones Negative Ur Blood (Man) Negative Urine Nitrate Negative Urine Bilirubin Negative Urine Urobilinogen 0.2 Ur Leukocyte Esterase Negative U Random Total Protein 11 Urine Creatinine 58.6 Protein/Creat Ratio 2 0.19 Vital signs: Vital Signs - 24 hr 10/25/23 14:23 10/25/23 14:30 10/25/23 14:45 Pulse Rate 86 83 82 Blood Pressure 126/78 124/77 123/81 Blood Pressure [Right Arm] 10/25/23 15:00 10/25/23 15:15 10/25/23 15:30 Pulse Rate 77 80 96 Blood Pressure 131/82 120/75 Blood Pressure [Right Arm] 126/78
== END 2023-10-25 15:50 ==
LOC: ANHOBOP 14:08 → ANHLDR 14:09
PROVIDERS: PCP Family Medicine; Visit Provider Obstetrics & Gynecology
DX: O13.9 Gestational [pregnancy-induced] hypertension without significant proteinuria, unspecified trimester (principal); Z3A.00 Weeks of gestation of pregnancy not specified
CPT/HCPCS: 36415; 59025; 80053; 81003; 82570; 84156; 84550; 85025; 87086; 87088; 99199

== ENCOUNTER 2023-11-09 05:01 | Inpatient (IN) | payer OTHER, SELFPAY ==
--- NOTE | 2023-11-08 16:13 | P.HP_ITS ---
H&P: HPI History of Present Illness Date/Time: 11/08/23 16:13 Chief Complaint: for induction of labor Narrative: since 33-year-old 3 para 1 whose EDC is 11/11 23 confirmed by early ultrasound presents at 36 weeks gestation labor. She is negative for group B strep has complicated with advanced cervical dilatation. [facility] Family History Family History Other No pertinent family history Social History Social History Smoking status: Never smoker Second hand tobacco smoke exposure: No Substance use: never Gender identity (if verbalized by the patient): Female Spiritual care concerns: No Meds Home Medications and Allergies Home Medications Medication Instructions Recorded Confirmed Type calcium carbonate 200 mg calcium 200 mg PO TID 01/20/21 10/11/23 History (500 mg) chewable tablet (Tums) docusate sodium 50 mg capsule 50 mg PO DAILY 01/20/21 10/11/23 History famotidine 20 mg tablet (Pepcid) 20 mg PO DAILY 01/20/21 10/11/23 History vit no.95-ferrous 1 tablet PO DAILY 01/20/21 10/11/23 History fumarate 28 mg-folic acid 800 mcg tablet () labetalol 100 mg tablet 200 mg PO Q12H 10/26/23 History Allergies Allergy/AdvReac Type Severity Reaction Status Date / Time No Known Drug Allergies Allergy Unknown Verified 10/21/22 12:41 Exam Const: General: cooperative, healthy appearing and comfortable Nutritional Appearance: average body habitus Orientation/consciousness: oriented to person, oriented to place and oriented to time HENMT: Head: normal to inspection Resp: Effort & Inspection: normal respiratory effort Cardio: Rate: regular rate Rhythm: regular rhythm Heart sounds: S1 normal heart sound present and S2 normal heart sound present GI: Inspection: normal to inspection ( Gravid soft uterus) : External Female Exam: normal external appearance Speculum Exam - Vagina: normal appearance of the vagina Speculum Exam - Cervix: normal appearance of the cervix ( 4/80/minus1) Assessment and Plan Assessment and plan (1) Term : Code(s): Z34.90 - Encounter for supervision of normal , unspecified, unspecified trimester Status: Acute Plan medical induction labor spontaneous vaginal delivery is expected. She is an epidural candidate
[2023-11-09] VITALS (109 sets, daily range): BP systolic 116–143; BP diastolic 68–105; PULSE 54–97; RESP 16–18; TEMP 36.2–36.8; O2SAT 85–100; BMI 30.2
--- NOTE | 2023-11-09 05:17 | LDADM ---
This patient, Mary Lou Huerta, was admitted to Labor/Delivery/Recovery 106 on 11/09/23 at 05:01. Plans for labor, pain management and were discussed with patient. Patient/family oriented to hospital policies and general routines including ID bracelet, bed and alarms, visiting hours, pain management, procedures, bathroom and other care routines, personal items, smoking policy, room service/diet and guest tray routines, security routines, and visiting hours. Patient/Family are encouraged to report perceived risks to care and to ask questions if they do not understand what they are told or what they should do. See OBIX for further documentation.
[2023-11-09 05:35] LABS: Basophils Absolute Auto 0.1 K/mm3 (0.0-0.1); Basophils Percent Auto 0.6 % (0.2-1.2); Eosinophils Absolute Auto 0.2 K/mm3 (0-0.3); Eosinophils Percent Auto 1.5 % (0-4.4); Hematocrit 31.7 % (37.0-47.0); Immature Granulocyte Absolute 0.05 K/mm3 (0.00-0.031); Immature Granulocyte Percent A 0.5 % (0-0.5); Lymphocytes Absolute Auto 2.37 K/mm3 (0.9-3.2); Lymphocytes Percent Auto 23.1 % (18.3-44.2); Mean Corpuscular HGB Conc 31.5 g/dl (32-36); Mean Corpuscular Hemoglobin 27.3 pg (26-34); Mean Corpuscular Volume 86.6 fl (80-100); Mean Platelet Volume 9.1 fl (7.4-10.4); Monocytes Percent Auto 10.2 % (2.6-8.5); Neutrophils Absolute Auto 6.6 K/mm3 (1.3-6.7); Neutrophils Percent Auto 64.1 % (45.5-73.1); Platelet Count Result 236 k/mm3 (150-375); Red Blood Count 3.66 M/mm3 (4.2-5.4); Red Cell Distribution Width 13.3 % (11.5-14.5); White Blood Count 10.2 K/mm3 (4.5-10.0)
[2023-11-09] MEDS: LACTATED RINGERS 1,000 ML 125 ML IV CONT ×3 (05:58→11:29)
[2023-11-09] MEDS: OXYTOCIN 30 UNITS/NS 500 ML 30 UNITS/500 ML BAG IV CONT (06:00)
[2023-11-09 06:26] LABS: HIV 1/2 Ab P24 Ag Result Negative (Negative)
--- NOTE | 2023-11-09 06:32 | WPDHPUPDATE1 ---
History and Physical Update Update Date/Time: 11/09/23 06:32 History and Physical has been reviewed, including an updated exam of the patient. There are NO changes in the patient's condition. Risks, benefits, and alternatives have been discussed and questions answered. Patient agrees to proceed with procedure. cx /-1. arom clear. fhts reassuring
--- NOTE | 2023-11-09 06:47 | WPDANESEPP ---
Anes - Eval Pre Procedure Procedure: labor epidural Date/Time: 11/09/23 06:47 Surgeon: gerardo Preop Diagnosis: pain during labor Pre Op Diagnosis: IOL Patient Data Age: 33 Gender: F Height: 1.78 m Weight: 95.5 kg Last Vital Signs Pulse 85 11/09/23 06:32 BP 124/82 11/09/23 06:32 O2 Del Method Room Air 11/09/23 05:14 Allergies Allergy/AdvReac Type Severity Reaction Status Date / Time No Known Drug Allergies Allergy Unknown Verified 10/21/22 12:41 Home Medications Medication Instructions Recorded Confirmed Type calcium carbonate 200 mg calcium 200 mg PO TID 01/20/21 11/09/23 History (500 mg) chewable tablet (Tums) docusate sodium 50 mg capsule 50 mg PO DAILY 01/20/21 11/09/23 History famotidine 20 mg tablet (Pepcid) 20 mg PO DAILY 01/20/21 11/09/23 History vit no.95-ferrous 1 tablet PO DAILY 01/20/21 11/09/23 History fumarate 28 mg-folic acid 800 mcg tablet () labetalol 100 mg tablet 200 mg PO Q12H 10/26/23 11/09/23 History Laboratory Tests 11/09/23 11/09/23 05:25 05:26 WBC 10.2 H K/mm3 (4.5-10.0) RBC 3.66 L M/mm3 (4.2-5.4) Hgb 10.0 L g/dL (12.0-15.0) Hct 31.7 L % (37.0-47.0) MCV 86.6 fl (80-100) MCH 27.3 pg (26-34) MCHC 31.5 L g/dl (32-36) RDW 13.3 % (11.5-14.5) Plt Count 236 k/mm3 (150-375) MPV 9.1 fl (7.4-10.4) Immature Gran % (Auto) 0.5 % (0-0.5) Neut % (Auto) 64.1 % (45.5-73.1) Lymph % (Auto) 23.1 % (18.3-44.2) [place] % (Auto) 10.2 H % (2.6-8.5) Eos % (Auto) 1.5 % (0-4.4) Baso % (Auto) 0.6 % (0.2-1.2) Lymph # (Auto) 2.37 K/mm3 (0.9-3.2) [place] # (Auto) 1.0 H K/mm3 (0.1-0.6) Eos # (Auto) 0.2 K/mm3 (0-0.3) Baso # (Auto) 0.1 K/mm3 (0.0-0.1) Abs Immat Gran (auto) 0.05 H K/mm3 (0.00-0.031) Absolute Neuts (auto) 6.6 K/mm3 (1.3-6.7) Absolute Nucleated RBC 0.0 K/mm3 (0.0-0.012) Nucleated RBC % 0.0 % (0.0-0.2) RPR Pending HIV 1&2 Ab/P24 Ag 4thGn Negative (Negative) Blood Type O Positive Antibody Screen Negative Patient hx anesthesia problems: none Family hx anesthesia problems: none Results Review: All pre-operative results and documents have been reviewed as part of the pre-operative evaluation. [facility] Past Medical History Medical History (Updated 11/09/23 @ 06:48 by Marielena Max CRNA) PIH ( induced hypertension) Family History Family History Other No pertinent family history Social History Social History Smoking status: Never smoker Second hand tobacco smoke exposure: No Substance use: never Do You Feel Safe in your Home?: Yes Lack of Transportation: YES Lack of Food: Never True Current Housing: I Have Housing Concerned About Future Housing: No Difficulty Paying Gas/Electric Bills: No Difficulty Paying for Meds: No Currently Unemployed: No Education: Bachelor's Degree Difficulty w/ Childcare or Family Care: No Gender identity (if verbalized by the patient): Female Spiritual care concerns: No Exam Day of Procedure 11/09/23 06:47
--- NOTE | 2023-11-09 12:06 | PM.OBPNLAB ---
Pain Control Date/time seen: 11/09/23 12:06 Pain control: tolerating well and epidural Pelvic Exam Dilation (cm): 6 Effacement (%): 80 station: -2 Amniotic membrane status: Leaking
[2023-11-09 14:18] LABS: Rapid Plasma Reagin Non-Reactive (NonReactive)
--- NOTE | 2023-11-09 14:51 | PM.DS ---
DS: Admitting Diagnosis Discharge Date 11/10/2023 Admitting Diagnosis Term DS: Discharge Diagnosis Discharge Diagnosis (1) PIH ( induced hypertension): Code(s): O13.9 - Gestational [-induced] hypertension without significant proteinuria, unspecified trimester Status: Acute (2) Term : Code(s): Z34.90 - Encounter for supervision of normal , unspecified, unspecified trimester Status: Acute DS: Summary Hospital Course Reason for hospitalization: patient was admitted on 11/09/2023 for induction of labor secondary mildly elevated blood pressures Hospital Course: patient underwent successful spontaneous vaginal delivery at 2:40 p.m. on 11/09/2023. Her hospital course unremarkable. She remained afebrile. She was up, voiding difficulty, ambulating eating regular diet, and generally without complaints. Time Spent with Patient Time attestation: Total time spent providing and/or coordinating discharge services: Exam Const: General: cooperative, healthy appearing and comfortable Nutritional Appearance: average body habitus Orientation/consciousness: oriented to person, oriented to place and oriented to time Resp: Effort & Inspection: normal respiratory effort Cardio: Rate: regular rate Rhythm: regular rhythm Heart sounds: S1 normal heart sound present and S2 normal heart sound present GI: Inspection: normal to inspection ( Fundus firm below the umbilicus) DS: Data Data Completed and Pending Labs on day of discharge: Labs from last 24 hours 11/09/23 11/09/23 05:26 05:25 WBC 10.2 H RBC 3.66 L Hgb 10.0 L Hct 31.7 L MCV 86.6 MCH 27.3 MCHC 31.5 L RDW 13.3 Plt Count 236 MPV 9.1 Immature Gran % (Auto) 0.5 Neut % (Auto) 64.1 Lymph % (Auto) 23.1 [place] % (Auto) 10.2 H Eos % (Auto) 1.5 Baso % (Auto) 0.6 Lymph # (Auto) 2.37 [place] # (Auto) 1.0 H Eos # (Auto) 0.2 Baso # (Auto) 0.1 Abs Immat Gran (auto) 0.05 H Absolute Neuts (auto) 6.6 Absolute Nucleated RBC 0.0 Nucleated RBC % 0.0 RPR Non-reactive HIV 1&2 Ab/P24 Ag 4thGn Negative Blood Type O Positive Antibody Screen Negative Discharge Plan Discharge Attending physician on discharge: Jaquan Park Discharging Clinician: Jaquan Park Patient Disposition: Home, Self-Care Activity: may shower, no straining and pelvic rest Diet: heart healthy Wound Care Instructions: follow printed instructions Patient Instructions: Antibiotic Form Stand Alone Forms: General Discharge Information Follow-up/Referrals: Jaquan Park MD [Physician] - Discharge Medications: No Action labetalol 100 mg tablet 200 mg PO Q12H PNV cmb#95-ferrous fumarate-FA [] 28 mg iron- 800 mcg Tablet 1 tablet PO DAILY docusate sodium 50 mg Capsule 50 mg PO DAILY famotidine [Pepcid] 20 mg Tablet 20 mg PO DAILY calcium carbonate [Tums] 200 mg calcium (500 mg) Tablet,Chewable 200 mg PO TID Date of admission: 11/09/23 05:01 Primary Care Provider: Eric,Ameena Odonnell Admitting Provider: Jaquan Park Attending physician on admission: Jaquan Park Condition: Stable
--- NOTE | 2023-11-09 14:52 | PM.OBPRVD ---
OB - Vaginal Delivery Note Procedure Delivery date: 11/09/23 Events: Gestational Hypertension Induction method: AROM Delivery augmentation: Pitocin Delivery monitor: External FHT and External Uterine Route of delivery: Episiotomy description: None Laceration Description: None Specimen: No Quantitative Blood Loss (ml): 61 Anesthesia type: Epidural Disposition: Floor Complications: No immediate complications [place] Baby Date of : 11/09/23 Time of : 14:40 Weeks of gestation at delivery: 39 presentation: vertex position: Right Occiput Anterior Placenta delivery description: Spontaneous Cord Vessel Description: 3 Vessels, Nuchal Cord, Loose and Reduced score one minute: 8 score five minutes: 8
[2023-11-09] MEDS: OXYTOCIN 30 UNITS/NS 500 ML 30 UNITS/500 ML BAG 125 UNITS IV CONT (15:11)
[2023-11-09] MEDS: WITCH HAZEL 40 PADS 1 PAD TOPICAL (16:16)
[2023-11-09] MEDS: IBUPROFEN 600 MG TABLET PO (16:16)
[2023-11-09] MEDS: BENZOCAINE 20% AER SPR (*SP) 56 GM CAN 1 SPRAY TOPICAL (16:16)
[2023-11-09] MEDS: ONDANSETRON INJ 4 MG/2 ML VIAL IV PUSH (17:28)
--- NOTE | 2023-11-09 17:33 | OBPPTRN ---
Patient transferred to post room # 281 via wheelchair. Support person present. Oriented to unit, room, information board, rooming in, admission packet and security measures. Patient verbalizes understanding.
[2023-11-10] MEDS: IBUPROFEN 600 MG TABLET PO ×2 (00:59→07:39)
[2023-11-10] MEDS: ACETAMINOPHEN 325 MG TABLET 650 MG PO (02:12)
[2023-11-10 04:30] VITALS: BP 120/84; PULSE 72; RESP 16; TEMP 37; O2SAT 96
[2023-11-10 04:39] LABS: Hematocrit 32.3 % (37.0-47.0); Hemoglobin 10.1 g/dL (12.0-15.0)
--- NOTE | 2023-11-10 06:32 | P.PNOB_ITS ---
OB - PN: Subj Subjective Date/time seen: 11/10/23 06:32 Patient comments: no complaints and pain well controlled baby status: doing well and nursing well OB - PN: Obj Data Labs 11/10/23 04:09 Labs: Laboratory Results - last 24 hr 11/09/23 11/10/23 05:25 04:09 Hgb 10.1 L Hct 32.3 L RPR Non-reactive Blood Type O Positive Antibody Screen Negative OB - PN A/P Plan day: 1 Plan: routine care, discharge home and follow up 6 weeks Time Spent With Patient Time: Total time spent is greater than 50% in coordination of care (as documented) at patient's floor/unit and/or counseling patient: Time with patient: less than 15 minutes Exam Const: General: cooperative, healthy appearing and comfortable Nutritional Appearance: average body habitus Orientation/consciousness: oriented to person, oriented to place and oriented to time HENMT: Head: normal to inspection Resp: Effort & Inspection: normal respiratory effort Cardio: Rate: regular rate Rhythm: regular rhythm Heart sounds: S1 [place] heart sound present and S2 normal heart sound present GI: Inspection: normal to inspection
[2023-11-10] MEDS: LANOLIN (LANSINOH) 7.5 GM CREAM 1 APPLIC TOPICAL (07:39)
[2023-11-10] MEDS: MULTIVIT/MIN/PREN/FOL AC/IRON TABLET 1 TAB PO (07:39)
[2023-11-10 08:20] VITALS: BP 118/80; PULSE 67; RESP 18; TEMP 36.9; O2SAT 99
[2023-11-10 11:48] VITALS: BP 124/89; PULSE 76; RESP 18; TEMP 36.9; O2SAT 100
--- NOTE | 2023-11-10 13:23 | WPDANLDPN2 ---
Anes-Prog Note L&D Date/Time: 11/10/23 13:23 Comfortable throughout: labor and delivery Neuraxial method: epidural Epidural/Spinal procedure site: clean & non-tender Neuro status: Neuro function grossly intact. Cardiovascular status: normal Respiratory status: normal Airway patency: baseline Mental status: baseline Post-Op hydration status: normal Vital Signs: Last Vital Signs Temp 98.4 F 11/10/23 11:48 Pulse 76 11/10/23 11:48 Resp 18 11/10/23 11:48 BP 124/89 11/10/23 11:48 Pulse Ox 100 11/10/23 11:48 O2 Del Method Room Air 11/10/23 04:30 Pain score (VAS): 0/10 I/O: Intake & Output 11/09/23 11/10/23 11/10/23 23:59 07:59 15:59 Intake Total 250 Output Total 175 Balance -175 250 Post-procedural complaints: none Patient feedback: Patient satisfied with anesthetic care.
--- NOTE | 2023-11-10 14:42 | PC.NURSE ---
[id number] Introductions were made, then consulted with patient to assess needs related to . Mother led the conversation with her?plans to feed?her infant, the?experience so far and is sleepy related to the circumcision this morning. It has been over three hours since the last breastfeed so RN encouraged understanding of the benefits of skin to skin (demonstrating unwrapping and placing upright on her chest), stimulating with massage touch, changing positions to encourage wakefulness, how to watch for early feeding cues, responsive feeding, feeding on demand (aiming for 8-12 times in 24 hours, about every 2-3 hours), milk production, and building/maintaining a milk supply. Parents work well with her with encouragement and education. Reviewed positioning and ear, shoulder, hip alignment, supporting the breast to facilitate a deep latch, asymmetrical latch (off-center), leading with the chin with a big, open, wide gape and body close to mother. Infant latched optimally to the left breast in football position. Education given to the mother of how to visualize the suckling (with good rocking jaw motion), swallows (dropping of the lower jaw) and how to listen for drinking at the breast (the ka sound). Infant was able to maintain latch without pain to mother protecting the nipple with optimal positioning, latching and demonstrated swallowing active . Examples of how to stimulate infant to maintain active and supporting mother was discussed with father of baby as well. Mother voiced understanding of skin to skin, stimulating with massage touch, responsive feedings, talking to infant to encourage if it has been 2 -2.5 hours since the start of the last , to call if infant does not latch,difficulty waking or if there is discomfort with . Resources used for education were facilitated with the visual handouts, tool, mom and baby guide. Inpatient/outpatient resources provided with feeding sheet, name written on the communication board, and the mom/baby guide. Parents voiced understanding of information, demonstrated learning and will call if there is a request for assistance. Reported to the Primary RN. [phone] After mother independently breastfed on the left breast she noticed some blistering on the tip of the nipple. We discussed positioning, assertive latching with a big, wide open gape aiming the nipple to the soft palate for nipple protection. 1430- Purposefully rounded after Primary RN had assisted mother with latching . Infant has demonstrated his eagerness by lifting the tongue up when he feels the nipple. Mother is using the football positioning, visiting with coworkers and doesn't complain of pain. Assistance is offered and patient encouraged to call if needed.
[2023-11-11 10:37] VITALS: BP 136/87; PULSE 82; RESP 18; TEMP 37.1; O2SAT 100
== END 2023-11-10 15:25 | disposition home or self-care (01) | DRG 807 ==
LOC: ANHLDR 14:50 → ANHOB2 17:34
PROVIDERS: Admitting Provider Obstetrics & Gynecology; PCP Family Medicine; Visit Provider Obstetrics & Gynecology
DX: O13.4 Gestational [pregnancy-induced] hypertension without significant proteinuria, complicating childbirth (principal); Z37.0 Single live birth; Z3A.39 39 weeks gestation of pregnancy; O69.81X0 Labor and delivery complicated by cord around neck, without compression, not applicable or unspecified
CPT/HCPCS: 36415; 85014; 85018; 85025; 86592; 86703; 86850; 86900; 86901; A9270; G0432; J2405; J2590; J2795; J7120